=== PATIENT | female | born 1985 | race African-American/Black ===

== ENCOUNTER 2020-04-02 05:20 | Inpatient (IN) | payer OTHER ==
[2020-04-02] MEDS ORDERED: ELECTROLYTE-148 SOLN 500 ML IV SCH (06:30)
[2020-04-02] MEDS ORDERED: CITRIC ACID/SODIUM CITRATE 30 ML UNIT-DOSE CUP PO ONE ×2 (06:30→07:58)
[2020-04-02] MEDS ORDERED: morphine SULFATE/PF 0.5 MG/ML (2cc Syringe - QUVA) ONE (06:55)
[2020-04-02] MEDS ORDERED: ELECTROLYTE-148 SOLN 500 ML IV ONE (06:58)
[2020-04-02 07:00] LABS: BASO % 0.2 % (0-2.0); EOS % 0.8 % (0-4.5); HEMATOCRIT 30.9 % (32.4-45.2); HEMOGLOBIN 9.7 GM/dL (10.7-15.3); LYMPH % 20.2 % (8-40); MCH 25.8 pg (25.7-33.7); MCHC 31.5 g/dl (32.0-36.0); MEAN PLT VOLUME 9.5 fl (7.5-11.1); NEUT % 73.8 % (42.8-82.8); PLATELET COUNT 281 K/MM3 (134-434); RBC 3.77 M/mm3 (3.60-5.2); RDW 13.9 % (11.6-15.6); WHITE BLOOD COUNT 9.1 K/mm3 (4.0-10.0)
[2020-04-02] MEDS ORDERED: ELECTROLYTE-148 SOLN 1,000 ML IV SCH (07:00)
[2020-04-02 07:08] VITALS: BMI 30.7
[2020-04-02 07:14] LABS: INR 0.84 (0.83-1.09); PROTHROMBIN TIME (PATIENT) 9.9 SEC (9.7-13.0)
[2020-04-02 07:17] LABS: ACTIVATED PTT 26.6 SECONDS (25.2-36.5)
[2020-04-02 07:23] LABS: BLOOD UREA NITROGEN 13.3 mg/dL (7-18); CALCIUM 8.7 mg/dL (8.5-10.1); CREATININE 0.7 mg/dL (0.55-1.3); POTASSIUM 4.1 mmol/L (3.5-5.1)
[2020-04-02] MEDS ORDERED: oxyCODONE HCL 5 MG TABLET PO PRN ×2 (07:59)
[2020-04-02] MEDS ORDERED: METHYLERGONOVINE MALEATE 0.2 MG/1 ML AMP IM PRN (07:59)
[2020-04-02] MEDS ORDERED: OXYTOCIN 20 UNITS in 0.9% NS 20 UNIT/1,000 ML INFUS.BAG IV SCH (08:00)
--- NOTE | 2020-04-02 08:05 | HP ---
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: No: Alzheimer's, CVA, Dementia, Migraine, Multiple Sclerosis, Peripheral Neuropathy, Parkinson's, Seizure, Syncope, TIA, Vertigo, Other Cardiovascular: No: AFIB, Aneurysm, Aortic Insufficiency, Aortic Stenosis, CAD, CHF, Deep Vein Thrombosis, HTN, Hyperlipdemia, WI, Mitral Insufficiency, Mitral Stenosis, Murmur, Pulmonary Hypertension, Other Pulmonary: No: Asthma, Bronchitis, Cancer, COPD, O2 Dependent, Pneumonia, Previously Intubated, Pulmonary Embolus, Pulmonary Fibrosis, Sleep Apnea, Other Gastrointestinal: No: Ascites, Cancer, Constipation, Crohn's Disease, Diverticulitis, Diverticulosis, Esophageal Varices, Gastritis, GERD, GI Bleed, Hemorrhoids, Hiatal Hernia, Inflamatory Bowel Disease, Irritable Bowel Disease, Pancreatitis, Peptic Ulcer Disease, Ulcerative Colitis, Other Hepatobiliary: No: Cirrhosis, Cholelithiasis, Cholecystitis, Choledocholithiasis, Hepatitis A, Hepatitis B, Hepatitis C, Other Renal/: No: Renal Failure, Renal Inusuff, BPH, Cancer, Hematuria, Hemodialy sis, Neurogenic Bladder, Renal Calculi, UTI, Other Reproductive: No: Ectopic , Endometriosis, Fibroids, PID, Polycystic Ovary Syndrome, Postmenopausal, Other ...: 5 ...Para: 2 ...Term: 2 ...: 0 ...Spon : 0 ...Induced : 2 ...Living Children: 2 ...Multiple Gestation: 0 ...LMP: 07/06/19 ... Weeks Gestation by Dates: 38.5 ...EDC by Dates: 04/05/20 Heme/Onc: No: Anemia, B12 Deficiency, Bleeding Disorder, Cancer, Current Chemotherapy, Current Radiation Therapy, Hemochromatosis, Hypercoaguable State, Myeloproliferative Synd, Sickle Cell Disease, Sickle Cell Trait, Thrombocytopenia, Other Infectious Disease: No: AIDS, C-Diff, Herpes Zoster, HIV, MRSA, STD's, Tuberculosis, VREF, Other Psych: No: Addictions, Anxiety, Bipolar, Depression, Panic, Psychosis, Schizophrenia, Other Musculoskeletal: No: Bursitis, Chronic low back pain, Hemiparesis, Hemiplegia, Osteoarthritis, Paraplegia, Other Rheumatology: No: Fibromyalgia, Gout, Lupus, Rheumatoid Arthritis, Sarcoidosis, Vasculitis, Other ENT: No: Allergic Rhinitis, Sinusitis, Other Endocrine: No: Ola's Disease, Winona's Disease, Diabetes Insipidus, Diabetes Mellitus, Hyperparathyroidism, Hyperthyroidism, Hypothyroidism, Osteope zacarias, SIADH, Other Dermatology: No: Basal Cell, Cellulitis, Eczema, Melanoma, Psoriasis, Squamous Cell, Other - Past Surgical History Past Surgical History: Yes: Hx Myomectomy: No Hx Transabdominal Cerclage: No - Advance Directives Advance Directives: Yes: Living Will - Smoking History Smoking history: Current every day smoker Have you smoked in the past 12 months: Yes Aproximately how many cigarettes per day: 1 - Alcohol/Substance Use Hx Alcohol Use: No History of Substance Use: reports: None - Social History Usual Living Arrangement: Yes: With Significant Other Do you think of yourself as: Straight/Heterosexual ADL: Independent History of Recent Travel: No Home Medications - Allergies Allergies/Adverse Reactions: Allergies Allergy/AdvReac Type Severity Reaction Status Date / Time No Known Allergies Allergy Verified 04/02/20 06:30 - Home Medications Home Medications: Ambulatory Orders Pnv 29-1 Tablet 1 tab PO DAILY 04/02/20 Family Medical History Family History: Denies Review of Systems - Review of Systems Constitutional: reports: No Symptoms Eyes: reports: No Symptoms HENT: reports: No Symptoms Neck: reports: No Symptoms Cardiovascular: reports: No Symptoms Respiratory: reports: No Symptoms Gastrointestinal: reports: No Symptoms Genitourinary: reports: No Symptoms Breasts: reports: No Symptoms Reported Musculoskeletal: reports: No Symptoms Integumentary: reports: No Symptoms Neurological: reports: No Symptoms Endocrine: reports: No Symptoms Hematology/Lymphatic: reports: No Symptoms Psychiatric: reports: No Symptoms Physical Exam - Maternity Vital Signs: Vital Signs Temperature 98.2 F 04/02/20 05:20 Pulse Rate 82 04/02/20 05:20 Respiratory Rate 04/02/20 05:20 Blood Pressure 130/75 04/02/20 05:20 O2 Sat by Pulse Oximetry (%) Constitutional: Yes: Well Nourished, No Distress, Calm Eyes: Yes: WNL, Conjunctiva Clear, EOM Intact HENT: Yes: WNL, Atraumatic, Normocephalic Neck: Yes: WNL, Supple, Trachea Midline Cardiovascular: Yes: WNL, Regular Rate and Rhythm Lungs: Clear to auscultation Breast(s): Yes: WNL - Abdominal Exam/OB Fundal Height: 38 Number of Fetuses: Single Presentation: Vertex Contractions: Yes Regularity: Regular Intensity: Mod/Strong Monitor Mode: External Heart Rate Location: [facility] Category: I Accelerations: Uniform Decelerations: None - Vaginal Exam/OB Vaginal Bleeding: Light Speculum Exam: No Amniotic Membrane Status: Ruptured Amniotic Fluid: Yes: Meconium Stained Meconium: Moderate Presentation: Vertex/Position Station: -2 - Physical Exam Musculoskeletal: Yes: WNL Extremities: Yes: WNL Deep Tendon Reflex Grade: Normal +2 ...Motor Strength: WNL Psychiatric: Yes: WNL, Alert, Oriented - Labs Lab Results: CBC, BMP 04/02/20 06:15 04/02/20 06:15 Hemorrhage Risk Assessment - Risk Factors Medium Risk Factors: Yes: Prior , uterine surgery,or multiple laparotomies Risk Score: 1 Risk Level: Medium Risk Assessment/Plan for repeat c s karla , in labor
[2020-04-02] MEDS ORDERED: LACTATED RINGERS SOLUTION 1,000 ML IV SCH (08:15)
[2020-04-02] MEDS: PRENATAL VITAMINS W/ FOLIC ACID TABLET (FP) PO SCH (10:00)
[2020-04-02] MEDS: IBUPROFEN 800 MG/8 ML IJ IVPB PRN (13:42)
--- NOTE | 2020-04-02 15:00 | OP ---
Operative Note - Note: Operative Date: 04/02/20 Pre-Operative Diagnosis: srom in active labor with hx of c s x2 Operation: repeat lt c s Findings: thick meconium, Post-Operative Diagnosis: Same as Pre-op Surgeon: Ezio Prasad Reliner: Eugene Low Anesthesiologist/SCHOOL COOK: Yaniv Garcia Anesthesia: Spinal Estimated Blood Loss (mls): 500 (no complications ) Operative Report Dictated: Yes
[2020-04-02] MEDS ORDERED: ONDANSETRON 4 MG/2 ML VIAL IVPUSH PRN (17:10)
[2020-04-02] MEDS ORDERED: SENNOSIDES/DOCUSATE COMBO (SENNA PLUS) TABLET (UD) PO PRN (22:00)
[2020-04-03] MEDS: IBUPROFEN 800 MG/8 ML IJ IVPB PRN (03:16)
[2020-04-03] MEDS ORDERED: BISACODYL 10 MG SUPP.RECT RC PRN (07:59)
[2020-04-03 08:32] LABS: BASO % 0.3 % (0-2.0); EOS % 0.5 % (0-4.5); HEMATOCRIT 26.1 % (32.4-45.2); HEMOGLOBIN 8.2 GM/dL (10.7-15.3); LYMPH % 14.1 % (8-40); MCH 25.8 pg (25.7-33.7); MCHC 31.3 g/dl (32.0-36.0); MEAN CELL VOLUME 82.6 fl (80-96); MEAN PLT VOLUME 9.1 fl (7.5-11.1); MONO % 3.7 % (3.8-10.2); NEUT % 81.4 % (42.8-82.8); PLATELET COUNT 247 K/MM3 (134-434); RBC 3.16 M/mm3 (3.60-5.2); WHITE BLOOD COUNT 10.6 K/mm3 (4.0-10.0)
--- NOTE | 2020-04-03 09:04 | PN ---
Post Progress Note Post Day: 1 Type of Delivery: Repeat C/S Vital Signs: Vital Signs Temperature 97.8 F 04/03/20 06:00 Pulse Rate 66 04/03/20 06:00 Respiratory Rate 20 04/03/20 06:21 Blood Pressure 118/71 04/03/20 06:00 O2 Sat by Pulse Oximetry (%) 99 04/03/20 01:27 Uterus: Yes: Fundus Firm Incision: Yes: Dressing dry and intact, Sutures intact Abdomen/GI: Yes: Abdomen soft, Tender, Tolerating PO Lochia: Yes: Serosa Lochia, amount: Small Extremities: Yes: Calves non-tender Activity: Ambulating (dc pt home tomorrow ) - Labs Labs: CBC WBC 10.6 K/mm3 (4.0-10.0) H 04/03/20 07:55 RBC 3.16 M/mm3 (3.60-5.2) L 04/03/20 07:55 Hgb 8.2 GM/dL (10.7-15.3) L 04/03/20 07:55 Hct 26.1 % (32.4-45.2) L D 04/03/20 07:55 MCV 82.6 fl (80-96) 04/03/20 07:55 MCH 25.8 pg (25.7-33.7) 04/03/20 07:55 MCHC 31.3 g/dl (32.0-36.0) L 04/03/20 07:55 RDW 14.0 % (11.6-15.6) 04/03/20 07:55 Plt Count 247 K/MM3 (134-434) 04/03/20 07:55 MPV 9.1 fl (7.5-11.1) 04/03/20 07:55 Absolute Neuts (auto) 8.6 K/mm3 (1.5-8.0) H 04/03/20 07:55 Neutrophils % 81.4 % (42.8-82.8) 04/03/20 07:55 Lymphocytes % 14.1 % (8-40) D 04/03/20 07:55 Monocytes % 3.7 % (3.8-10.2) L 04/03/20 07:55 Eosinophils % 0.5 % (0-4.5) 04/03/20 07:55 Basophils % 0.3 % (0-2.0) 04/03/20 07:55 Nucleated RBC % 0 % (0-0) 04/03/20 07:55
--- NOTE | 2020-04-03 09:11 | DS ---
Physical Exam-IP COUNSEL Vital Signs: Vital Signs Temperature 97.8 F 04/03/20 06:00 Pulse Rate 66 04/03/20 06:00 Respiratory Rate 20 04/03/20 06:21 Blood Pressure 118/71 04/03/20 06:00 O2 Sat by Pulse Oximetry (%) 99 04/03/20 01:27 Constitutional: Yes: Well Nourished, No Distress, Calm Eyes: Yes: WNL, Conjunctiva Clear, EOM Intact HENT: Yes: WNL, Atraumatic, Normocephalic Neck: Yes: WNL, Supple, Trachea Midline Cardiovascular: Yes: WNL, Regular Rate and Rhythm Respiratory: Yes: WNL, Regular, CTA Bilaterally Gastrointestinal: Yes: WNL, Normal Bowel Sounds, Soft ...Rectal Exam: Yes: WNL Renal/: Yes: WNL Pelvis: Yes: WNL External Genitalia: Yes: Normal Internal Exam Deferred: Yes Vaginal Exam: Yes: Normal Cervix: Yes: Normal Uterus: Yes: Normal Adnexa: Normal: Bilateral ....Post : Yes: Uterus firm, Uterus non-tender Breast(s): Yes: WNL Musculoskeletal: Yes: WNL Extremities: Yes: WNL Integumentary: Yes: WNL Wound/Incision: Yes: Clean/Dry, Well Approximated Neurological: Yes: WNL, Alert, Oriented ...Motor Strength: WNL Psychiatric: Yes: WNL, Alert, Oriented Labs: CBC, BMP 04/03/20 07:55 04/02/20 06:15 Delivery - Delivery Section: Repeat Type of Anesthesia: Spinal Episiotomy/Laceration: None EBL (cc): 500 Delivery, Single - Stages of Labor Date 1st Stage Initiatied: 04/02/20 Time 1st Stage Initiated: 04:00 Date of Delivery: 04/02/20 Time of Delivery: 07:15 Time Placenta Delivered: 07:16 - Condition of Infant 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: Yes Name: Andrés Vinson Gender: Male Weight: 2.523 kg Position: Left, OA Total Hours ROM (Hrs/Mins): 3hrs 16min - 1 Minute Total Score: 9 5 Minutes Total Score: 9 - [place] Feeding Plan Initial Plan: Elected not to breastfeed exclusively throughout hospitalization Discharge Summary Problems reviewed: Yes Reason For Visit: ADMIT Procedures: Principal: repeat cs Other Procedures: none Hospital Course: uneventful Health Concerns: none Condition: Good - Instructions Diet, Activity, Other Instructions: Physical activity Resume your normal everyday activity as tolerated no heavy lifting or exercise until seen by your surgeon. You may walk unlimited kareem of and climb stairs. You may resume driving the car when you feel safe and comfortable behind the wheel. No sexual activity as instructed. Wound care If you have a bandage, leave it on, and keep dry for 48-72 hours. After that time discard the outer bandage. If they are tapes on the skin under the out of bandage leave them in place. They will peel off in the next 7 to 10 days. Do Not Peel them off. You may shower the day after surgery. If there are tapes present on the skin, you may shower over them. Diet There are no dietary restrictions. Eat healthy, high-fiber foods. Drink 6 to 8 glasses of liquid each day. This will assist in keeping your bowels are regular. Pain management You may take Tylenol or acetaminophen or Ibuprofen (for example, Motrin, Advil etc.) from my pain prescription medication is ordered should be taken as prescribed for moderate to severe pain. Call MD for any of the following: call dr contreras 2 weeks appointment Severe pain not relieved by medication Fever of 101 or higher Excessive bleeding or drainage on dressing Inability to urinate Disposition: HOME - Home Medications Comprehensive Discharge Medication List: Ambulatory Orders Pnv 29-1 Tablet 1 tab PO DAILY 04/02/20
[2020-04-03] MEDS ORDERED: DIPHTH,PERTUSS(ACELL),TET 0.5 ML DISP.SYRIN IM ONE (10:00)
[2020-04-03] MEDS: PRENATAL VITAMINS W/ FOLIC ACID TABLET (FP) PO SCH (11:02)
[2020-04-03] MEDS: ENOXAPARIN NA (PORCINE) 40 MG/0.4 ML DISP.SYRIN SQ SCH (11:03)
[2020-04-03] MEDS: ACETAMINOPHEN 325 MG TABLET (FP) PO PRN ×2 (17:46→21:27)
[2020-04-03] MEDS: IBUPROFEN 600 MG TABLET (FP) PO PRN ×2 (17:47→21:26)
[2020-04-03] MEDS: SIMETHICONE 80 MG TAB.CHEW (FP) PO PRN ×2 (17:48→21:27)
[2020-04-03] MEDS ORDERED: SENNOSIDES/DOCUSATE COMBO (SENNA PLUS) TABLET (UD) PO ONE (21:25)
[2020-04-04] MEDS: PRENATAL VITAMINS W/ FOLIC ACID TABLET (FP) PO SCH (09:17)
[2020-04-04] MEDS: SIMETHICONE 80 MG TAB.CHEW (FP) PO PRN (09:17)
[2020-04-04] MEDS: ENOXAPARIN NA (PORCINE) 40 MG/0.4 ML DISP.SYRIN SQ SCH (09:17)
[2020-04-04 09:20] VITALS: BP 138/74; PULSE 74; TEMP 98.7
--- NOTE | 2020-04-06 11:05 | PATH ---
Surgical Pathology Report Patient Name: ERIC RIGGINS [facility]. Rec. #: [id number] /Age/Gender: 1985 (Age: 34) / F Account: [id number] Location: [facility] OBS/POULTRY PINNER Taken: 04/02/2020 Received: 04/04/2020 Reported: 04/06/2020 Physicians: Ezio Prasad MD Specimen(s) Received PLACENTA Clinical History , x2 Final Diagnosis PLACENTA: THIRD TRIMESTER PLACENTA. TWO VESSEL CORD (SINGLE UMBILICAL ARTERY). MEMBRANES WITH NO DIAGNOSTIC ABNORMALITIES. Electronically Signed Jonatan Murcia M.D. Gross Description The specimen is received fresh labeled placenta and is a 306 gram, 18.5 x 15.5 x 2.3 cm. placenta with attached membranes and umbilical cord. The attached membranes are murphy, translucent with focal opacities and insert marginally. The umbilical cord measures 29 cm. in length and averages 0.9 cm. in diameter. The cord inserts eccentrically, 5 cm. to the nearest margin. No true knots or strictures are identified. Cut surface of the umbilical cord reveals only 2 vessels. The surface is dominique-blue with minimal fibrin deposition and appropriate caliber vessels. The maternal surface is red-brown with focal defects. Sectioning reveals red-brown, spongy parenchyma. No lesions are identified. Appointment Manager sections are submitted in three cassettes as follows: 1- membrane rolls and umbilical cord; 2-3- full thickness sections of placenta. /04/04/2020 saudi/04/04/2020
--- NOTE | 2020-04-07 12:35 | OP ---
DATE OF OPERATION: 04/02/2020 PREOPERATIVE DIAGNOSIS: Active labor, previous history of low-transverse section x2, and spontaneous rupture of membranes. POSTOPERATIVE DIAGNOSIS: Active labor, previous history of low-transverse section x2, and spontaneous rupture of membranes. PROCEDURE: Repeat low-transverse section. SURGEON: Mira Hester MD WEATHERIZATION TECHNICIAN: TK Abrams ANESTHESIOLOGIST: Yaniv Garcia MD ANESTHESIA: Spinal. INDICATIONS: A 34-year-old female patient 38 weeks and 5 days is scheduled for this week and came into the hospital on Saturday, April 02, at 5:00 in the morning with active labor after spontaneous rupture of membranes. The patient chrystal every 3 minutes. Pain level was 10 out of 10. The patient taken to the OR quickly for repeat low-transverse section. DETAILS OF PROCEDURE: The patient was placed on the operating table in the supine position. After spinal anesthesia was obtained, the patient's abdomen and pelvis were prepped and draped in the usual sterile manner. Pfannenstiel incision was made. An incision was made through the skin and subcutaneous tissue until the fascia nicked in the midline. The fascia extended bilaterally. Intraperitoneal cavity was entered and a low-transverse segment of the uterus was entered. The was in the LOT position. Thick meconium was found. The baby was handed over to wool washer feeder after umbilical cord doubly clamped and cut. Cord blood gas not obtained but the placenta was removed. Uterus closed in single layer first interlocking Vicryl sutures. Good hemostasis. Both gutters cleaned. Both ovaries delivered into the uterus within normal limits. No complications. No adhesions were found. Thick meconium was found and the wool washer feeder sucked out the meconium. Other than that, the patient tolerated the procedure well. Blood loss about 500 mL. No complications. Peritoneum was closed. Fascia was closed. The skin was closed. Transferred to the recovery room in stable condition. MIRA HESTER MD [id number]
== END 2020-04-04 12:14 | disposition home or self-care (01) | DRG 540 ==
LOC: JLDR 05:20 → J3W 09:30
PROVIDERS: ADMIT Obstetrics & Gynecology; ATTEND Obstetrics & Gynecology
PROC: 10D00Z1 Extraction of Products of Conception, Low, Open Approach (ICD-10-PCS; principal; 2020-04-02)
DX: O42.02 Full-term premature rupture of membranes, onset of labor within 24 hours of rupture (principal); O34.211 Maternal care for low transverse scar from previous cesarean delivery; O77.0 Labor and delivery complicated by meconium in amniotic fluid; Z37.0 Single live birth; Z3A.38 38 weeks gestation of pregnancy; O99.334 Smoking (tobacco) complicating childbirth; F17.210 Nicotine dependence, cigarettes, uncomplicated
CPT/HCPCS: 36415; 80048; 85025; 85610; 85730; 86780; 86850; 86900; 86901; 87389; 88307-TC; 90715; U0003

== ENCOUNTER 2025-03-24 06:19 | Inpatient (IN) | payer OTHER ==
[2025-03-23 09:39] VITALS: BMI 31.6
[2025-03-24] MEDS ORDERED: BUPIVACAINE HCL/PF 0.25% (2.5MG/ML) 10 ML VIAL ONE (07:24)
[2025-03-24] MEDS ORDERED: DEXAMETHASONE SOD PHOSPHATE 4 MG/1 ML VIAL ONE ×2 (07:27→09:22)
[2025-03-24] MEDS ORDERED: LIDOCAINE HCL/PF 2% SDV 5ML VIAL ONE (07:27)
[2025-03-24] MEDS ORDERED: HYDROmorphone HCl 2 MG/ML VIAL ONE ×2 (07:27→10:01)
[2025-03-24] MEDS ORDERED: ceFAZolin SODIUM 1 GM VIAL ONE (07:27)
[2025-03-24] MEDS ORDERED: ROCURONIUM BROMIDE 50 MG/5 ML SYRINGE ONE ×2 (07:28→09:22)
[2025-03-24] MEDS ORDERED: PROPOFOL 40 ML ONE ×2 (07:28→09:22)
[2025-03-24] MEDS ORDERED: MIDAZOLAM HCL 2 MG/2 ML SINGLE DOSE VIAL ONE ×3 (07:28→09:22)
[2025-03-24] MEDS ORDERED: ROPIVACAINE HCL 0.5% 30ML VIAL ONE (07:47)
[2025-03-24] MEDS ORDERED: BUPIVACAINE LIPOSOME/PF (EXPAREL) 266 MG/20 ML VIAL ONE (07:47)
[2025-03-24] MEDS: ceFAZolin SODIUM 1 GM VIAL IVPB ONE ×2 (08:40)
[2025-03-24] MEDS ORDERED: SUGAMMADEX SODIUM 200 MG/2 ML VIAL ONE (09:52)
[2025-03-24] MEDS ORDERED: SIMETHICONE 80 MG TAB.CHEW (FP) PO PRN (10:43)
[2025-03-24] MEDS ORDERED: ACETAMINOPHEN 325 MG TABLET (FP) PO PRN (10:43)
[2025-03-24] MEDS ORDERED: IBUPROFEN 800 MG/8 ML IJ IVPB PRN (10:43)
[2025-03-24] MEDS ORDERED: IBUPROFEN 600 MG TABLET (FP) PO PRN (10:43)
[2025-03-24] MEDS: CEFAZOLIN 2 GM in DEXTROSE 5%-WATER - 100 ML IVPB ONE (10:43)
[2025-03-24] MEDS ORDERED: SENNOSIDES/DOCUSATE COMBO (SENNA PLUS) TABLET (UD) PO PRN (10:43)
[2025-03-24] MEDS ORDERED: PROMETHAZINE HCL 25 MG/1 ML VIAL IVPB PRN (10:54)
[2025-03-24] MEDS ORDERED: ONDANSETRON 4 MG/2 ML VIAL IVPUSH PRN ×2 (10:54→10:58)
[2025-03-24] MEDS: LACTATED RINGERS SOLUTION 1,000 ML IV SCH (11:00)
[2025-03-24] MEDS ORDERED: HYDROmorphone *PCA* 10MG/50ML DISP.SYRIN ONE (11:45)
[2025-03-24] MEDS: HYDROmorphone *PCA* 10MG/50ML DISP.SYRIN PCA SCH (11:55)
[2025-03-24] MEDS: DEXTROSE 5%-LACTATED RINGERS 1,000 ML IV SCH (11:57)
[2025-03-24 15:28] VITALS: RESP 18
[2025-03-24] MEDS: CEFAZOLIN 2 GM/D5W 2 GM/50 ML ML IVPB SCH (17:48)
[2025-03-24] MEDS ORDERED: oxyCODONE HCL 5 MG TABLET PO PRN ×2 (22:44)
[2025-03-25 06:44] LABS: ABSOLUTE IMMATURE GRANULOCYTES 0.04 x10^3/uL (0.0-0.031); BASOPHILS # 0.01 x10^3/uL (0.01-0.08); EOSINOPHIL % 0.3 % (0.7-5.8); EOSINOPHILS # 0.03 x10^3/uL (0.04-0.36); HEMATOCRIT 31.2 % (34.1-44.9); HEMOGLOBIN 9.5 g/dL (11.2-15.7); MCHC 30.4 g/dl (32.2-35.5); MEAN PLT VOLUME 12.3 fl (9.4-12.3); MONOCYTE # 0.67 x10^3/uL (0.24-0.86); MONOCYTE % 6.2 % (4.7-12.5); PLATELET COUNT 218 x10^3/uL (182-369); RDW 13.3 % (12.1-16.8)
[2025-03-25] MEDS ORDERED: BISACODYL 10 MG SUPP.RECT RC PRN (10:44)
[2025-03-25 12:00] VITALS: BP 119/64; PULSE 81; TEMP 98.1
== END 2025-03-25 15:30 | disposition home or self-care (01) | DRG 519 ==
LOC: J2C 06:19 → J3W 13:12
PROVIDERS: ADMIT Obstetrics & Gynecology; ATTEND Obstetrics & Gynecology
PROC: 0UT90ZL Resection of Uterus, Supracervical, Open Approach (ICD-10-PCS; principal; 2025-03-24 08:50)
DX: D25.1 Intramural leiomyoma of uterus (principal); N92.0 Excessive and frequent menstruation with regular cycle; R10.2 Pelvic and perineal pain
CPT/HCPCS: 36415; 80053; 81025; 84702; 85025; 85610; 85730; 86850; 86870; 86880; 86900; 86901; 86902; 88305-TC; 88307-TC; 94760; J0666